=== PATIENT | male | born 1970 | race Two or more races ===

== ENCOUNTER 2024-08-05 10:15 | Day surgery (SDC) | payer MEDICAID, SELFPAY ==
[2024-08-04 14:04] VITALS: BMI 38.5
[2024-08-05] VITALS (20 sets, daily range): BP systolic 88–130; BP diastolic 55–96; PULSE 66–730; RESP 12–25; TEMP 36.8–37.2; O2SAT 92–99; BMI 37.8
[2024-08-05] MEDS: MIDAZOLAM INJ 1 MG/ML VIAL 2 ML (ASD USE ONLY) 2 MG IV (12:24)
[2024-08-05] MEDS: RINGERS LACTATED 1000 ML 1,000 ML 60 ML IV (12:24)
[2024-08-05] MEDS: DiphenhydrAMINE INJ 50 MG/ML VIAL 25 MG IV (12:24)
[2024-08-05] MEDS: fentaNYL CIT INJ 50 mCg/ML AMP 2ML (ASD USE ONLY) IV (12:50)
== END 2024-08-05 14:05 | disposition home or self-care (01) ==
PROVIDERS: PCP Family Medicine; Referring Provider Specialist; Visit Provider Specialist
PROC: 0DBE8ZX Excision of Large Intestine, Via Natural or Artificial Opening Endoscopic, Diagnostic (ICD-10-PCS; CPT 45380; principal; 2024-08-05 12:45)
DX: Z12.11 Encounter for screening for malignant neoplasm of colon (principal); D12.2 Benign neoplasm of ascending colon; D12.8 Benign neoplasm of rectum; E11.9 Type 2 diabetes mellitus without complications; I10 Essential (primary) hypertension; Z79.82 Long term (current) use of aspirin; Z79.899 Other long term (current) drug therapy; Z79.84 Long term (current) use of oral hypoglycemic drugs
CPT/HCPCS: 45385; 45380; A4649; J1200; J2250; J3010; J7120